=== PATIENT | female | born 1965 | race Two or more races ===

== ENCOUNTER 2024-11-12 07:07 | Outpatient (CLI) | payer OTHER | END 2024-11-12 07:14 | disposition home or self-care (01) | LOC: MAMO-SONO 07:07 | DX: E78.2 Mixed hyperlipidemia (principal); E03.8 Other specified hypothyroidism; E66.9 Obesity, unspecified; Z12.31 Encounter for screening mammogram for malignant neoplasm of breast; I10 Essential (primary) hypertension ==